=== PATIENT | male | born 1975 | race Caucasian/White ===

== ENCOUNTER 2024-12-27 10:57 | Emergency (ER) | payer SELFPAY | END 2024-12-27 12:49 | disposition home or self-care (01) | LOC: JD.ED 10:57 | DX: M77.12 Lateral epicondylitis, left elbow (principal); Z88.1 Allergy status to other antibiotic agents; Z88.8 Allergy status to other drugs, medicaments and biological substances | CPT/HCPCS: 73080-26-LT; 73080-LT; 99283 ==